=== PATIENT | female | born 1945 | race Caucasian/White ===

== ENCOUNTER 2017-03-18 13:52 | Inpatient (IN) ==
[2017-03-18] MEDS ORDERED: LOVENOX SUBQ SCH (15:00)
[2017-03-18] MEDS ORDERED: D50W SYRINGE IV PRN (15:01)
[2017-03-18] MEDS ORDERED: CATAPRES PO ONE (15:06)
[2017-03-18 15:38] LABS: ALLEN TEST YES; BE -1.2 mmoll (-3.0-3.0); BLOOD TYPE ARTERIAL; DRAW SITE R RADIAL; METHB 1.5 % (0.0-1.5); MODALITY ROOM AIR; O2(CT) 14.9 mL/dL (15.0-23.0); PCO2(98.6) 32 mmHg (35-45); PO2(98.6) 68 mmHg (60-100); SAMPLE BLOOD; SAO2 96.2 % (95.0-100.0); THB 11.7 g/dL (11.5-17.4); pH(98.6) 7.45 (7.35-7.45)
--- NOTE | 2017-03-18 15:49 | Diag Imaging Result Doc PS360 ---
CHEST-2 VIEWS - 03/18/2017 INDICATION: SOB TECHNIQUE: COMPARISON: 01/23/2017 FINDINGS: There is a new small to moderate left and trace right pleural effusion. Stable borderline heart size. Worsening pulmonary vascular congestion. There may be some curly B lines on the right indicating some interstitial pulmonary edema. IMPRESSION: Worsening from prior. Concerning for pulmonary edema. Bilateral pleural effusions. Electronically signed by Nito Avendano 03/18/2017 3:46 PM
[2017-03-18] MEDS: DUONEB (A & A) INH SCH ×2 (16:13→22:06)
[2017-03-18 17:00] LABS: MANUAL DIFF NEEDED? NO
[2017-03-18 17:07] LABS: BASO% 0.6 % (0.0-0.8); EOS% 2.3 % (0.0-10.0); HEMATOCRIT 34.9 % (37.0-47.0); IMM GRAN# 0.02 X1000 (0.0-0.04); IMM GRAN% 0.2 % (0.0-0.5); LYMPH% 21.4 % (20.5-51.1); MCH 31.8 PG (27-31); MCHC 34.4 g/dL (33-37); MCV 92.6 FL (81-99); MONO# 0.58 X1000 (0.11-0.59); MONO% 6.5 % (1.7-9.3); MPV 11.8 FL (7.4-10.4); PLT 320 X1000 (130-400); RBC 3.77 XMIL (4.2-5.4)
[2017-03-18 17:21] LABS: HEMOGLOBIN A1C 7.7 % (4.8-6.0)
[2017-03-18 17:33] LABS: INR 0.96; PROTIME 10.1 Seconds (9.2-11.7); PTT 26.5 Seconds (22.0-36.0)
[2017-03-18] MEDS ORDERED: LASIX IV ONE ×2 (17:45→20:00)
[2017-03-18 17:47] LABS: ALBUMIN 3.3 g/dL (3.5-5.0); CALCIUM 8.5 mg/dL (8.8-10.2); POTASSIUM 2.9 mmol/L (3.5-5.1); TOTAL BILIRUBIN 0.5 mg/dL (0.20-1.00); TOTAL PROTEIN 5.8 g/dL (6.3-8.3)
[2017-03-18] MEDS ORDERED: KLOR-CON PO ONE ×2 (18:06→23:48)
[2017-03-18] MEDS: HUMULIN R SUBQ SCH ×2 (18:40→20:59)
[2017-03-18] MEDS: ASPIRIN EC PO SCH (18:44)
[2017-03-18] MEDS: PROTONIX IV SCH (18:45)
[2017-03-18] MEDS: SODIUM CHLORIDE 0.9% INJ SCH (18:45)
[2017-03-18] MEDS: TOPROL XL PO SCH (18:45)
[2017-03-18 20:10] LABS: URINE MICRO REVIEW NEEDED? NO; URINE SOURCE VOIDED
[2017-03-18 20:21] LABS: BILIRUBIN URINE NEGATIVE (NEGATIVE); BLOOD URINE TRACE (NEGATIVE); COLOR YELLOW; GLUCOSE URINE 500 mg/dL (NEGATIVE); LEUKOCYTES URINE NEGATIVE (NEGATIVE); NITRITE URINE POSITIVE (NEGATIVE); PH URINE 6.5; PROTEIN URINE 300 mg/dL (NEGATIVE); SP GRAVITY URINE 1.007; TURBIDITY URINE CLEAR (CLEAR); UROBILINOGEN URINE NORMAL (NORMAL)
[2017-03-18 20:22] LABS: UR EPITHELIAL CELLS <10 /HPF (<10); URINE BACTERIA 3+ /HPF; URINE RBC <10 /HPF (<10); URINE WBC <10 /HPF (<10)
[2017-03-18] MEDS: CATAPRES PO SCH (20:36)
[2017-03-18] MEDS: PRINZIDE 20/12.5MG PO SCH (20:36)
[2017-03-18] MEDS: LIPITOR PO SCH (20:36)
[2017-03-18] MEDS ORDERED: ELIQUIS PO SCH (21:00)
[2017-03-18] MEDS: ROCEPHIN 1 GM in NS 50 ML IV SCH (22:38)
[2017-03-18] MEDS ORDERED: REQUIP PO ONE (23:48)
[2017-03-19] MEDS: DUONEB (A & A) INH SCH ×4 (03:50→21:29)
[2017-03-19] MEDS: HUMULIN R SUBQ SCH ×4 (06:23→20:41)
[2017-03-19] MEDS: LASIX IV SCH ×2 (06:23→17:28)
[2017-03-19 06:44] LABS: MANUAL DIFF NEEDED? NO
[2017-03-19 06:46] LABS: BASO% 0.6 % (0.0-0.8); EOS# 0.14 X1000 (0.0-0.7); HEMATOCRIT 31.4 % (37.0-47.0); HEMOGLOBIN 10.6 g/dL (12.0-16.0); IMM GRAN# 0.02 X1000 (0.0-0.04); IMM GRAN% 0.3 % (0.0-0.5); LYMPH# 1.44 X1000 (1.2-3.4); LYMPH% 20.2 % (20.5-51.1); MCH 31.6 PG (27-31); MCHC 33.8 g/dL (33-37); MCV 93.7 FL (81-99); MONO# 0.47 X1000 (0.11-0.59); MONO% 6.6 % (1.7-9.3); MPV 11.8 FL (7.4-10.4); NEUT% 70.3 % (42.2-75.2); PLT 262 X1000 (130-400); RBC 3.35 XMIL (4.2-5.4)
[2017-03-19 07:34] LABS: ALBUMIN 2.8 g/dL (3.5-5.0); CALCIUM 8.2 mg/dL (8.8-10.2); MAGNESIUM 1.5 mg/dL (1.5-2.7); POTASSIUM 3.4 mmol/L (3.5-5.1); TOTAL BILIRUBIN 0.31 mg/dL (0.20-1.00)
[2017-03-19 07:45] LABS: FREE T4 2.12 ng/dL (0.93-1.70)
[2017-03-19] MEDS ORDERED: INSULIN PEN NEEDLES ONE (08:04)
[2017-03-19] MEDS: PLAVIX PO SCH (08:17)
[2017-03-19] MEDS: IMDUR PO SCH (08:17)
[2017-03-19] MEDS: ARICEPT PO SCH (08:17)
[2017-03-19] MEDS: TOPROL XL PO SCH (08:17)
[2017-03-19] MEDS: KLOR-CON PO SCH ×2 (08:17→20:28)
[2017-03-19] MEDS: NICODERM PATCH TD SCH (08:17)
[2017-03-19] MEDS: ASPIRIN EC PO SCH (08:17)
[2017-03-19] MEDS: CATAPRES PO SCH ×2 (08:17→20:28)
[2017-03-19] MEDS: LANTUS SUBQ SCH (08:17)
[2017-03-19] MEDS: PRINZIDE 20/12.5MG PO SCH ×2 (08:17→20:28)
[2017-03-19] MEDS: PROTONIX IV SCH (17:30)
[2017-03-19] MEDS: SODIUM CHLORIDE 0.9% INJ SCH (17:30)
[2017-03-19] MEDS: LIPITOR PO SCH (20:28)
[2017-03-19] MEDS: ROCEPHIN 1 GM in NS 50 ML IV SCH (20:28)
[2017-03-20] MEDS: HUMULIN R SUBQ SCH ×5 (01:16→21:05)
[2017-03-20] MEDS: DUONEB (A & A) INH SCH ×4 (03:45→21:12)
[2017-03-20 06:04] LABS: MANUAL DIFF NEEDED? NO
[2017-03-20 06:07] LABS: BASO% 0.6 % (0.0-0.8); EOS# 0.24 X1000 (0.0-0.7); EOS% 2.9 % (0.0-10.0); HEMOGLOBIN 11.6 g/dL (12.0-16.0); IMM GRAN# 0.02 X1000 (0.0-0.04); IMM GRAN% 0.2 % (0.0-0.5); LYMPH# 1.88 X1000 (1.2-3.4); LYMPH% 22.7 % (20.5-51.1); MCH 31.5 PG (27-31); MCHC 33.1 g/dL (33-37); MCV 95.1 FL (81-99); MONO# 0.64 X1000 (0.11-0.59); MONO% 7.7 % (1.7-9.3); MPV 11.6 FL (7.4-10.4); NEUT% 65.9 % (42.2-75.2); PLT 296 X1000 (130-400); RBC 3.68 XMIL (4.2-5.4)
[2017-03-20 06:28] LABS: ALBUMIN 3.1 g/dL (3.5-5.0); CALCIUM 8.5 mg/dL (8.8-10.2); POTASSIUM 3.8 mmol/L (3.5-5.1); TOTAL BILIRUBIN 0.22 mg/dL (0.20-1.00); TOTAL PROTEIN 5.7 g/dL (6.3-8.3)
[2017-03-20] MEDS ORDERED: LASIX IV SCH (09:00)
[2017-03-20] MEDS: CATAPRES PO SCH ×2 (09:52→21:06)
[2017-03-20] MEDS: ASPIRIN EC PO SCH (09:52)
[2017-03-20] MEDS: KLOR-CON PO SCH ×2 (09:52→21:04)
[2017-03-20] MEDS: ARICEPT PO SCH (09:52)
[2017-03-20] MEDS: IMDUR PO SCH (09:52)
[2017-03-20] MEDS: NICODERM PATCH TD SCH (09:53)
[2017-03-20] MEDS: TOPROL XL PO SCH (09:53)
[2017-03-20] MEDS: PRINZIDE 20/12.5MG PO SCH ×2 (09:53→21:04)
[2017-03-20] MEDS: PLAVIX PO SCH (09:53)
[2017-03-20] MEDS: LANTUS SUBQ SCH (09:56)
--- NOTE | 2017-03-20 10:05 | Diag Imaging Result Doc PS360 ---
CHEST-2 VIEWS - 03/20/2017 INDICATION: hypoxia TECHNIQUE: COMPARISON: 03/18/2017 FINDINGS: Stable trace right and small left pleural effusions. Stable mild interstitial pulmonary edema with some curly B lines visible on the right side. Stable cardiomegaly and mild pulmonary vascular congestion. No new infiltrates. IMPRESSION: No change from prior. Electronically signed by Nito Avendano 03/20/2017 10:03 AM
[2017-03-20] MEDS ORDERED: LASIX IV ONE (17:47)
[2017-03-20] MEDS: PROTONIX IV SCH (17:53)
[2017-03-20] MEDS: SODIUM CHLORIDE 0.9% INJ SCH (17:53)
[2017-03-20] MEDS: ROCEPHIN 1 GM in NS 50 ML IV SCH (21:03)
[2017-03-20] MEDS: LIPITOR PO SCH (21:04)
[2017-03-21] MEDS: DUONEB (A & A) INH SCH ×4 (03:52→21:20)
[2017-03-21 07:01] LABS: ALBUMIN 2.9 g/dL (3.5-5.0); CALCIUM 8.4 mg/dL (8.8-10.2); POTASSIUM 4.2 mmol/L (3.5-5.1); TOTAL BILIRUBIN 0.15 mg/dL (0.20-1.00); TOTAL PROTEIN 5.4 g/dL (6.3-8.3)
--- NOTE | 2017-03-21 07:36 | Diag Imaging Result Doc PS360 ---
CT THORAX W/O CONTRAST - 03/21/2017 INDICATION: sob TECHNIQUE: A CT dose reduction protocol was used. COMPARISON: Prior chest x-rays FINDINGS: There are trace pleural effusions. There is cardiomegaly. There are CABG changes. There is shotty adenopathy throughout the mediastinum. There are ill-defined bilateral infiltrates that are interstitial with smooth intralobular septal thickening. The appearance is highly consistent with pulmonary edema. There is some patchy bibasilar atelectasis as well. There is severe atrophy of the left kidney. The right kidney appears essentially normal. Otherwise upper abdominal images are unremarkable. There are moderate degenerative changes of the spine. No acute or suspicious bony lesion. IMPRESSION: 1. Cardiomegaly. Interstitial pulmonary edema. Trace pleural effusions. 2. Patchy atelectasis in the lung bases. 3. Severe atrophy of the left kidney. Electronically signed by Nito Avendano 03/21/2017 7:34 AM
[2017-03-21] MEDS: TYLENOL PO PRN (07:55)
[2017-03-21] MEDS: LANTUS SUBQ SCH (08:00)
[2017-03-21] MEDS: PRINZIDE 20/12.5MG PO SCH ×2 (08:00→21:52)
[2017-03-21] MEDS: IMDUR PO SCH (08:00)
[2017-03-21] MEDS: ARICEPT PO SCH (08:00)
[2017-03-21] MEDS: TOPROL XL PO SCH (08:00)
[2017-03-21] MEDS: PLAVIX PO SCH (08:00)
[2017-03-21] MEDS: ASPIRIN EC PO SCH (08:00)
[2017-03-21] MEDS: KLOR-CON PO SCH ×2 (08:00→21:52)
[2017-03-21] MEDS: CATAPRES PO SCH ×2 (08:00→21:51)
[2017-03-21] MEDS: NICODERM PATCH TD SCH (08:01)
[2017-03-21] MEDS: HUMULIN R SUBQ SCH ×3 (08:07→16:30)
--- NOTE | 2017-03-21 11:34 | Diag Imaging Result Doc PS360 ---
EXAM: US RENAL 2 (RETROPER) COMPLETE - 03/21/2017 HISTORY: left kidney atrophy, renal insuffiency TECHNIQUE: Bilateral renal ultrasound COMPARISON: 04/05/2014 FINDINGS: The right kidney measures 10.6 x 5.8 x 6.7 cm in size. The left kidney measures 8.4 x 3.6 x 4.4 cm in size. There is generalized mild thickening of the left renal cortex. There are two right renal cysts which measure 2.2 cm and 2.6 cm in maximum dimension, respectively. There are two left renal cysts which measure 0.6 cm and 1.8 cm in maximum dimension, respectively. There is no solid renal mass identified. There is no hydronephrosis identified. There is no renal stone identified. The urinary bladder is nondistended and therefore is not evaluated. IMPRESSION: Generalized mild left renal cortical thinning. Bilateral renal cysts measuring up to 2.6 cm on the right and 1.8 cm on the left. No evidence of solid renal mass. No hydronephrosis. Electronically signed by Hu Avina 03/21/2017 11:31 AM
[2017-03-21] MEDS: CARDIZEM PO SCH ×3 (11:50→21:52)
[2017-03-21] MEDS: TRANDATE PO SCH ×2 (11:50→21:51)
[2017-03-21] MEDS: LASIX IV SCH ×2 (11:51→21:52)
[2017-03-21 12:07] LABS: HDL 41 mg/dL (45-65); LDL 66 mg/dL; TRIGLYCERIDES 123 mg/dL (35-135); VLDL 25 mg/dL
[2017-03-21] MEDS: SODIUM CHLORIDE 0.9% INJ SCH (18:53)
[2017-03-21] MEDS: PROTONIX IV SCH (18:53)
[2017-03-21] MEDS: ROCEPHIN 1 GM in NS 50 ML IV SCH (21:52)
[2017-03-21] MEDS: LIPITOR PO SCH (21:52)
[2017-03-22] MEDS: CARDIZEM PO SCH ×4 (02:18→20:29)
[2017-03-22] MEDS: DUONEB (A & A) INH SCH ×4 (03:51→21:00)
[2017-03-22] MEDS: HUMULIN R SUBQ SCH ×4 (06:24→22:35)
[2017-03-22 07:07] LABS: CALCIUM 9.7 mg/dL (8.8-10.2); MAGNESIUM 1.9 mg/dL (1.5-2.7); POTASSIUM 4.8 mmol/L (3.5-5.1)
[2017-03-22] MEDS: NICODERM PATCH TD SCH (10:27)
[2017-03-22] MEDS: KLOR-CON PO SCH ×2 (10:27→20:30)
[2017-03-22] MEDS: LASIX IV SCH (10:27)
[2017-03-22] MEDS: LANTUS SUBQ SCH (10:28)
[2017-03-22] MEDS: PLAVIX PO SCH (10:28)
[2017-03-22] MEDS: CATAPRES PO SCH (10:28)
[2017-03-22] MEDS: PRINZIDE 20/12.5MG PO SCH ×2 (10:28→20:30)
[2017-03-22] MEDS: ASPIRIN EC PO SCH (10:28)
[2017-03-22] MEDS: ARICEPT PO SCH (10:29)
[2017-03-22] MEDS: TRANDATE PO SCH ×2 (10:29→21:06)
[2017-03-22 17:03] LABS: UR CREATININE 24.1 mg/dL (11-20); UR PROTEIN 67.7 mg/dL
[2017-03-22 17:04] LABS: UR CREATININE TOTAL 554.3 mg/24 (600-1600)
[2017-03-22] MEDS: SODIUM CHLORIDE 0.9% INJ SCH (20:29)
[2017-03-22] MEDS: PROTONIX IV SCH (20:29)
[2017-03-22] MEDS: TYLENOL PO PRN (20:29)
[2017-03-22] MEDS: ROCEPHIN 1 GM in NS 50 ML IV SCH (20:30)
[2017-03-22] MEDS: LIPITOR PO SCH (20:30)
[2017-03-23] MEDS: CARDIZEM PO SCH ×3 (02:44→14:36)
[2017-03-23] MEDS: DUONEB (A & A) INH SCH ×4 (03:52→23:00)
[2017-03-23] MEDS: HUMULIN R SUBQ SCH ×5 (06:18→23:18)
[2017-03-23 07:21] LABS: CALCIUM 8.6 mg/dL (8.8-10.2); MAGNESIUM 1.9 mg/dL (1.5-2.7); POTASSIUM 4.9 mmol/L (3.5-5.1)
[2017-03-23] MEDS ORDERED: LASIX PO SCH (09:00)
[2017-03-23] MEDS: ARICEPT PO SCH (10:55)
[2017-03-23] MEDS: NICODERM PATCH TD SCH (10:55)
[2017-03-23] MEDS: PLAVIX PO SCH (10:55)
[2017-03-23] MEDS: TRANDATE PO SCH ×2 (10:56→23:17)
[2017-03-23] MEDS: ASPIRIN EC PO SCH (10:56)
[2017-03-23] MEDS: PRINZIDE 20/12.5MG PO SCH ×2 (10:56→23:17)
[2017-03-23] MEDS: KLOR-CON PO SCH ×2 (10:57→23:17)
[2017-03-23] MEDS: LANTUS SUBQ SCH (12:08)
[2017-03-23] MEDS: ROCEPHIN 1 GM in NS 50 ML IV SCH (23:17)
[2017-03-23] MEDS: LIPITOR PO SCH (23:17)
[2017-03-23] MEDS: SODIUM CHLORIDE 0.9% INJ SCH (23:17)
[2017-03-23] MEDS: PROTONIX IV SCH (23:17)
[2017-03-24] MEDS: DUONEB (A & A) INH SCH ×4 (03:34→22:55)
[2017-03-24] MEDS: TYLENOL PO PRN (04:56)
[2017-03-24] MEDS: HUMULIN R SUBQ SCH ×4 (06:17→21:35)
[2017-03-24 07:25] LABS: CALCIUM 9.4 mg/dL (8.8-10.2); POTASSIUM 5.2 mmol/L (3.5-5.1)
[2017-03-24] MEDS: NICODERM PATCH TD SCH (09:37)
[2017-03-24] MEDS: TRANDATE PO SCH ×2 (09:37→21:33)
[2017-03-24] MEDS: ASPIRIN EC PO SCH (09:37)
[2017-03-24] MEDS: PLAVIX PO SCH (09:37)
[2017-03-24] MEDS: NORVASC PO SCH (09:38)
[2017-03-24] MEDS: ARICEPT PO SCH (09:38)
[2017-03-24] MEDS: LANTUS SUBQ SCH (09:38)
[2017-03-24] MEDS ORDERED: INSULIN PEN NEEDLES ONE (09:50)
--- NOTE | 2017-03-24 10:25 | Diag Imaging Result Doc PS360 ---
EXAM: US RENAL 2 (RETROPER) COMPLETE HISTORY: decreased renal function TECHNIQUE: Renal ultrasound COMMENT: The right kidney is 10.5 x 5.1 x 4.9 cm the left is 8.4 x 3.2 x 3.5 cm. There are cysts in the right kidney in the upper pole measuring 8 mm and in the lower pole measuring 2.5 cm. There is a 1.8 cm cyst in the upper pole of the left kidney. There is no evidence of hydronephrosis. Incidental note is made of an abdominal aortic aneurysm distally with a maximum AP dimension of 3.1 cm. Some mural thrombus is noted. The bladder is not distended. IMPRESSION: Renal cysts. Left renal atrophy. No evidence of obstructive uropathy. Electronically signed by Reji Loza 03/24/2017 10:22 AM
[2017-03-24 15:59] LABS: URINE MICRO REVIEW NEEDED? NO; URINE SOURCE VOIDED
[2017-03-24 16:14] LABS: BILIRUBIN URINE NEGATIVE (NEGATIVE); BLOOD URINE NEGATIVE (NEGATIVE); COLOR YELLOW; GLUCOSE URINE 200 mg/dL (NEGATIVE); LEUKOCYTES URINE NEGATIVE (NEGATIVE); NITRITE URINE NEGATIVE (NEGATIVE); PROTEIN URINE 200 mg/dL (NEGATIVE); SP GRAVITY URINE 1.014; TURBIDITY URINE CLEAR (CLEAR); UR EPITHELIAL CELLS <10 /HPF (<10); URINE BACTERIA NEGATIVE /HPF; URINE RBC <10 /HPF (<10); URINE WBC <10 /HPF (<10); UROBILINOGEN URINE NORMAL (NORMAL)
[2017-03-24 17:14] LABS: UR CREAT RANDOM 79.9 mg/dL (11-20)
[2017-03-24 17:27] LABS: UR PROT RANDOM 202.6 mg/dL
[2017-03-24] MEDS: SODIUM CHLORIDE 0.9% INJ SCH (21:32)
[2017-03-24] MEDS: ROCEPHIN 1 GM in NS 50 ML IV SCH (21:32)
[2017-03-24] MEDS: PROTONIX IV SCH (21:32)
[2017-03-24] MEDS: LIPITOR PO SCH (21:33)
[2017-03-25] MEDS: DUONEB (A & A) INH SCH ×3 (03:11→15:21)
[2017-03-25] MEDS: HUMULIN R SUBQ SCH ×3 (06:06→16:10)
[2017-03-25 07:45] LABS: ALBUMIN 2.9 g/dL (3.5-5.0); CALCIUM 8.8 mg/dL (8.8-10.2); POTASSIUM 5.1 mmol/L (3.5-5.1)
[2017-03-25] MEDS: ARICEPT PO SCH (08:23)
[2017-03-25] MEDS: ASPIRIN EC PO SCH (08:23)
[2017-03-25] MEDS: PLAVIX PO SCH (08:23)
[2017-03-25] MEDS: NICODERM PATCH TD SCH (08:24)
[2017-03-25] MEDS: NORVASC PO SCH (08:24)
[2017-03-25] MEDS: LANTUS SUBQ SCH (08:24)
[2017-03-25] MEDS: TRANDATE PO SCH (10:36)
[2017-03-25 13:26] VITALS: BP 136/56
[2017-03-25] MEDS ORDERED: PROTONIX PO SCH (21:00)
== END 2017-03-25 19:01 | disposition home or self-care (01) ==
LOC: DIRADM 13:52 → 3N 14:23
PROVIDERS: ADMIT Internal Medicine; ATTEND Internal Medicine